=== PATIENT | female | born 1975 | race African-American/Black ===

== ENCOUNTER 2020-09-23 17:38 | Emergency (ER) | payer MEDICAID ==
[~2020-09-23] VITALS: Ht 170.2 cm; Wt 113.0 kg
[2020-09-23] MEDS ORDERED: SODIUM CHLORIDE 0.9% 1,000 ML IV ONE (18:30)
[2020-09-23] MEDS ORDERED: TETANUS, DIPHTHERIA, PERTUSSIS VAC/PF 0.5ML (>7YR OLD) IM ONE (18:30)
[2020-09-23] MEDS ORDERED: MORPHINE SULFATE 4 MG/ML CPJ (NOT FOR IM USE) IV ONE (18:45)
[2020-09-23 18:59] LABS: BASOPHILS % 0.4 % (0.0-2.0); EOSINOPHILS % 1.2 % (0.0-5.0); HEMOGLOBIN. 10.6 g/dL (12.0-16.0); LYMPHOCYTES % 26.2 % (20.0-50.0); MEAN CORPUSCULAR HEMOGLOBIN 25.2 pg (28.0-32.0); MEAN CORPUSCULAR VOLUME 78.5 fL (81.0-99.0); MEAN PLATELET VOLUME 8.8 fl (7.4-10.4); MONOCYTES % 4.1 % (2.0-8.0); NEUTROPHILS % 68.1 % (40.0-76.0); PLATELET 328 x1000/uL (130-400); RED BLOOD CELL COUNT 4.21 mill/uL (4.2-5.4); RED CELL DISTRIBUTION WIDTH 15.8 % (11.6-14.6)
[2020-09-23 19:02] LABS: CHLORIDE 104 mEq/L (98-107)
[2020-09-23 19:03] LABS: PROTHROMBIN TIME 10.9 sec (9.6-11.0)
[2020-09-23 19:32] LABS: HCG SCREEN NEGATIVE
[2020-09-23] MEDS ORDERED: KETOROLAC 15MG/ML VIAL IV ONE (20:45)
[2020-09-23 23:26] VITALS: BP 131/85
[2020-09-23] MEDS ORDERED: IOHEXOL-300 100 ML BOTTLE ONE (23:30)
[2020-09-23 23:55] LABS: CLARITY URINE CLEAR (CLEAR); COLOR URINE YELLOW (YELLOW); KETONES URINE NEGATIVE (NEGATIVE); LEUKOCYTE ESTERASE URINE NEGATIVE (NEGATIVE); NITRITE URINE NEGATIVE (NEGATIVE); OCCULT BLOOD URINE 1+ (NEGATIVE); PH URINE 7.5 (4.5-8.0); PROTEIN URINE NEGATIVE (NEGATIVE); SPECIFIC GRAVITY URINE 1.042 (1.005-1.030); UROBILINOGEN URINE 0.2 E.U./dL (0.2-1.0)
== END 2020-09-23 23:45 | disposition home or self-care (01) ==
LOC: ER 17:38
DX: S00.83XA Contusion of other part of head, initial encounter (principal); S60.211A Contusion of right wrist, initial encounter; S91.209A Unspecified open wound of unspecified toe(s) with damage to nail, initial encounter; S30.0XXA Contusion of lower back and pelvis, initial encounter; I10 Essential (primary) hypertension; V43.52XA Car driver injured in collision with other type car in traffic accident, initial encounter; Y93.89 Activity, other specified; Y92.410 Unspecified street and highway as the place of occurrence of the external cause; Z88.8 Allergy status to other drugs, medicaments and biological substances
CPT/HCPCS: 36415; 70450; 70486; 71045; 72170; 73090; 73130; 73630; 74177; 80053; 81003; 81025; 83605; 83690; 84703; 85025; 85610; 86850; 86900; 86901; 90471; 90715; 96361; 96374; 96375; 99285; J1885; J2270; J7030; Q9967; Z7610